=== PATIENT | male | born 1975 ===

== ENCOUNTER → 2021-06-16 | Outpatient (CLI) | payer BC ==
[2021-06-16 15:52] LABS: Microalb/Creat Ratio UR, Rand 6.667 mg/g (0.000-30.000); Microalbumin, Random Urine 6.8 mg/L (0.000-20.000)
== END | disposition home or self-care (01) ==
LOC: LAB 13:04 → LAB SHORT 13:04
PROVIDERS: Family Medicine
DX: I10 Essential (primary) hypertension (principal)
CPT/HCPCS: 82043; 82570